=== PATIENT | male | born 1990 | race Caucasian/White ===

== ENCOUNTER 2022-02-27 20:16 | Emergency (ER) | payer SELFPAY ==
[2022-02-27 20:26] VITALS: BP 149/95; PULSE 93; RESP 16; TEMP 36.9; O2SAT 100
--- NOTE | 2022-02-27 20:59 | ED.UPPEXIN ---
HPI - Extremity Injury (Upper) General Chief Complaint: Extremity Injury, Upper Stated Complaint: fishing hook in finger Source: patient Mode of arrival: ambulatory Limitations: no limitations History of Present Illness HPI narrative: this is 31-year-old gentleman that presents with a fishhook imbedded in his left middle finger the medial-sided occurred earlier today there is currently no bleeding but there is pain and discomfort. Otherwise there is no numbness or tingling has good range of motion. complaint: injury to: left Onset (ago): hour(s) Other Extremity Injury: Left: fingers ( foot show can better did left middle finger in the medial side) Related Data Home Medications Medication Instructions Recorded Confirmed No Home Medications 02/27/22 02/27/22 Allergies Allergy/AdvReac Type Severity Reaction Status Date / Time No Known Allergies Allergy Verified 02/27/22 20:58 Review of Systems Review of Systems: All systems reviewed & are unremarkable except as noted in HPI and below PMFSH Past Medical History Medical History Patient denies medical problems Surgical History Surgical History Closed fracture of right clavicle (08/31/19) Social History Social History Smoking status: Unknown if ever smoked Alcohol intake: unknown Substance use: unknown Gender identity (if verbalized by the patient): Male Spiritual care concerns: No Exam Const: General: no acute distress Orientation/consciousness: patient oriented x3 HENMT: Head: normal to inspection Eyes: Conjunctivae: conjunctivae normal Pupils: Equal, round and reactive pupils present EOM: EOMs intact bilaterally Neck: Neck: normal visual inspection Chest: Chest palpation & inspection: normal inspection of the chest Resp: Effort & Inspection: normal respiratory effort Cardio: Rate: regular rate Rhythm: regular rhythm GI: GI Palp: Yes Soft to palpation Skin: Other: fishhook imbedded left middle finger and the medial side Neuro: General: patient oriented x3, moves all extremities, no meningeal signs and no focal motor deficits Extrem: General: normal to inspection and no pedal edema Psych: Mental Status: mental status grossly normal Affect: normal affect Course Course Emergency Course: fishhook removed with nerve block administered and pulled fishhook through. Procedures Nerve Block Nerve Block 1: Nerve block date: 02/27/22 Nerve block time: 21:03 Time out performed: Yes Local Anesthetic: lidocaine 1% Amount of anesthesia used (mL): 6 Side: left Nerve Blocks: digital Procedure Successful: Yes Patient Tolerated Procedure: well Complications: none Critical Care Time Critical Care Time Critical Care Time: No Discharge Plan Discharge Clinical Impression: [place] injury to finger Qualifiers: Encounter type: initial encounter Laterality: left Qualified Code(s): S69.92XA - Unspecified injury of left wrist, hand and finger(s), initial encounter Patient Disposition: Home, Self-Care Condition: Stable Instructions: Antibiotic Form, Puncture Wound (ED) Additional Instructions: follow-up with primary care physician if symptoms for redness erythema drainage should occur. Prescriptions: No Action No Home Medications RF: 0 Follow-up/Referrals: UNKNOWN,DOCTOR [Primary Care Provider] - Time of Disposition: 21:05
[2022-02-27] MEDS: TETANUS,DIPHTHERIA,AC PERTUSSIS ADULT 0.5 ML (ADACEL) IM (21:13)
[2022-02-27] MEDS: LIDOCAINE HCL 1% LOCAL INJ 20 ML VIAL (21:14)
[2022-02-27 21:15] VITALS: BP 140/88; PULSE 90; RESP 16; TEMP 36.6; O2SAT 100
== END 2022-02-27 21:18 | disposition home or self-care (01) ==
PROVIDERS: Emergency Provider Emergency Medicine
DX: S69.92XA Unspecified injury of left wrist, hand and finger(s), initial encounter (principal); W45.8XXA Other foreign body or object entering through skin, initial encounter
CPT/HCPCS: 90471; 90715; 99282

== ENCOUNTER 2022-03-09 08:46 | Emergency (ER) | payer SELFPAY ==
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
[2022-03-09 08:56] VITALS: BP 157/98; PULSE 102; RESP 20; TEMP 36.3; O2SAT 97
[2022-03-09] MEDS: KETOROLAC (*BKC) 60 MG/2 ML VIAL IM (09:24)
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
[2022-03-09 10:50] VITALS: BP 125/93; PULSE 99; RESP 20; TEMP 36.9; O2SAT 98
== END 2022-03-09 10:55 | disposition home or self-care (01) ==
PROVIDERS: Emergency Provider Emergency Medicine
DX: S16.1XXA Strain of muscle, fascia and tendon at neck level, initial encounter (principal); V86.99XA Unspecified occupant of other special all-terrain or other off-road motor vehicle injured in nontraffic accident, initial encounter
CPT/HCPCS: 72125; 73030; 96372; 99284; J1885; L0150